=== PATIENT | male | born 1960 | race Caucasian/White ===

== ENCOUNTER 2017-08-15 18:13 | Emergency (ER) | END 2017-08-15 19:20 | disposition left against medical advice (07) ==

== ENCOUNTER → 2018-10-15 | Outpatient (CLI) | payer OTHER ==
--- NOTE | 2018-10-15 16:27 | HKNOTE ---
DATE OF SERVICE: 10/15/2018 HISTORY OF PRESENT ILLNESS: Mr. Rosenthal is complaining of chronic right knee pain. He denies any l ocking, catching or instability. He does not use any assist devices, or take pain medications. He h as not had previous treatments. GAIT: Nonantalgic gait, reciprocal gait pattern. RIGHT KNEE EXAMINATION: Tender over the anterior knee in the medial joint line. No crepitation on r felecia of motion 0 to 120 degrees range of motion, stable to varus valgus stress, negative Charley, neg ative anterior drawer, negative posterior drawer, negative Andrew's, 5/5 functional quadriceps of t he eccentric gastric soleus. IMAGING: X-rays right knee: X-rays of right knee demonstrate medial and patellofemoral joint narrow ing. No fractures or dislocations. IMPRESSION: A 57-year-old male with right knee osteoarthritis. PLAN: We will request authorization for outpatient physical therapy. Should he continue to have alex n in the future, we will request authorization for injections of the right knee. He will follow up i n 3 months. Dictated By: NANI BECK/NTS Conf#: [id number] DID#: [id number]
--- NOTE | 2018-10-16 09:23 | RADRPT ---
PROCEDURE: Right knee series CLINICAL INDICATION: Pain TECHNIQUE: AP weightbearing, PA axial weightbearing, lateral weightbearing and sunrise views of the right knee were obtained. COMPARISON: None FINDINGS: Mild degenerate joint disease of the right knee. No acute fracture or dislocation. No focal bony nickie tic or lytic lesions. No evidence of right knee joint effusion. Atherosclerosis. Soft tissues otherwi se unremarkable. IMPRESSION: Mild degenerate joint disease right knee without acute fracture dislocation or joint effusion. RPTAT:AAJJ Physician Medina Date Time Electronically viewed and signed by Sameer Bailon Physician on 10/16/2018 09:23 BM/
== END | disposition home or self-care (01) ==
LOC: HKI 16:13
PROVIDERS: ATTEND Orthopaedic Surgery Adult Reconstructive Orthopaedic Surgery
DX: M17.11 Unilateral primary osteoarthritis, right knee (principal)
CPT/HCPCS: 73564; Z7500; G0463